=== PATIENT | male | born 1995 | race Caucasian/White ===

== ENCOUNTER 2021-04-19 17:37 | Outpatient (CLI) | payer OTHER, SELFPAY ==
--- NOTE | 2021-04-19 18:10 | MRI_ITS ---
STUDY: MRI RIGHT MIDFOOT REASON FOR EXAM: Dorsal and plantar pain of the midfoot, fractures of the third and fourth metatarsals 3-4 months ago. TECHNIQUE: Standardized fat and water weighted pulse sequences were obtained in all 3 orthogonal planes. COMPARISON: None. FINDINGS: Normal talonavicular articulation. Normal calcaneocuboid articulation. Normal navicular-cuneiform articulations. Normal intercuneiform articulations. Normal first tarsometatarsal articulation. There is a mild sprain of Lisfranc (T2 long axis image 8). Normal second and third tarsometatarsal articulations. There is a small subchondral bone contusion of the distal lateral cuneiform (inversion recovery sagittal image 12). Normal cuboid fourth and cuboid fifth tarsometatarsal articulation. There is a bone contusion of the base and diaphysis of the first metatarsal (inversion recovery sagittal images 18-23). There is a bone contusion of the base and diaphysis of the second metatarsal (inversion recovery sagittal images 15, 16). There is a healing fracture of the distal diaphysis of the third metatarsal (T2 long axis image 9) with bone edema (inversion recovery sagittal image 13). There is a healing fracture of the distal diaphysis of the fourth metatarsal (T2 long axis image 9) with bone edema (inversion recovery sagittal image 10). There is mild bone edema in the tibial sesamoid (inversion recovery short axis image 20), suggestive of sesamoiditis. Normal fibular sesamoid. Normal tibialis anterior tendon. Normal extensor hallucis longus tendon. Normal extensor digitorum longus tendons. Normal peroneus longus tendon and distal insertion. Normal peroneus brevis tendon and distal insertion. Normal intrinsic muscles of the mid and forefoot region. Normal extensor digitorum brevis muscle. There is a pressure lesion in the subcutis adipose space plantar to the first metatarsophalangeal joint (T1 short axis image 21). There is a pressure lesion in the subcutis adipose space plantar to the fifth metatarsophalangeal joint (T1 short axis image 17). MRI/Lower Ext/No Jt/w/o IMPRESSION: Mild sprain of Lisfranc ligament. Bone contusions of the first and second metatarsals and distal lateral cuneiform. Healing nondisplaced fractures of the distal diaphyses of the third and fourth metatarsals with bone edema. Mild tibial sesamoiditis. Pressure lesions in the subcutis adipose space plantar to the first and fifth metatarsophalangeal joints. Electronically Signed: Noel Elder MD at 9:44 EST ,
== END 2021-04-19 23:59 | disposition home or self-care (01) ==
LOC: MRI 17:42
PROVIDERS: PCP Family Medicine; Visit Provider Family Medicine
DX: S92.334A Nondisplaced fracture of third metatarsal bone, right foot, initial encounter for closed fracture (principal); S92.344A Nondisplaced fracture of fourth metatarsal bone, right foot, initial encounter for closed fracture
CPT/HCPCS: 73718